=== PATIENT | female | born 1995 | race Caucasian/White ===

== ENCOUNTER 2018-12-21 16:28 | Emergency (ER) | payer OTHER ==
[~2018-12-21] VITALS: Ht 170.1 cm; Wt 107.5 kg
[~2018-12-21 16:28] MED LIST: AMOXICILLIN500 M2 PO; PEPCID20 MG PO; ZYRTEC10 MG PO
[2018-12-21] MEDS ORDERED: PREDNISONE20 M1 PO (17:05)
== END 2018-12-21 17:16 | disposition home or self-care (01) ==
LOC: ED 16:28
DX: L23.7 Allergic contact dermatitis due to plants, except food (principal)

== ENCOUNTER 2020-08-15 10:56 | Emergency (ER) | payer OTHER ==
[~2020-08-15] VITALS: Ht 167.6 cm; Wt 97.1 kg
[~2020-08-15 10:56] MED LIST changes: +PREDNISONE20 M1 PO
[2020-08-15] MEDS ORDERED: CYCLOBENZAPRINE5 M3 PO (11:49)
[2020-08-15] MEDS ORDERED: Motrin,Rufen800 MG PO (11:49)
== END 2020-08-15 11:56 | disposition home or self-care (01) ==
LOC: ED 10:56
DX: M54.5 Low back pain (principal); Z79.899 Other long term (current) drug therapy

== ENCOUNTER 2022-09-07 08:21 | Emergency (ER) | payer OTHER ==
[~2022-09-07] VITALS: Ht 167.6 cm; Wt 97.1 kg
[~2022-09-07 08:21] MED LIST changes: +CYCLOBENZAPRINE5 M3 PO; +Motrin,Rufen800 MG PO
[2022-09-07 09:31] LABS: BASO % 0.4 % (0.0-1.0); EOS # 0.1 10*3/uL (0.0-0.4); EOS % 1.3 % (1.0-4.0); HEMATOCRIT 40.9 % (37.0-47.0); LYMPH # 3.4 10*3/uL (1.3-4.4); LYMPH % 37.9 % (27.0-41.0); MEAN CELL VOLUME 84.7 fl (81.0-99.0); MEAN CORPUSCULAR HGB 28.8 pg (27.0-31.0); MEAN PLATELET VOLUME 9.2 fl (9.6-12.3); MONO # 0.5 10*3/uL (0.1-1.0); MONO % 5.8 % (3.0-9.0); NEUT # 4.9 10*3/uL (2.3-7.9); PLATELET COUNT AUTOMATED 423 10*3/uL (130-400); RED BLOOD COUNT 4.83 10*6/uL (4.10-5.10); RED CELL DISTRI WIDTH 12.8 % (0-14.5); WHITE BLOOD COUNT 9.1 10*3/uL (4.8-10.8)
[2022-09-07 10:36] LABS: ALKALINE PHOSPHATASE 53 U/L (46-116); BUN 8 mg/dl (9-23); CHLORIDE 103 mmol/L (98-107); LIPASE 29 U/L (12-53); SGPT/ALT 14 U/L (10-49); TOTAL PROTEIN 7.9 gm/dL (6.0-8.0)
[2022-09-07 10:58] LABS: BETA-HCG, QUANT < 0.0 mIU/mL (0-10)
[2022-09-07] MEDS ORDERED: ZITHROMAX250 MG PO (11:16)
[2022-09-07] MEDS ORDERED: PREDNISONE50 MG PO (11:16)
== END 2022-09-07 11:26 | disposition home or self-care (01) ==
LOC: ED 08:21
PROVIDERS: Emergency Medicine
DX: J20.9 Acute bronchitis, unspecified (principal); Z88.1 Allergy status to other antibiotic agents

== ENCOUNTER 2023-03-04 15:57 | Emergency (ER) | payer OTHER ==
[~2023-03-04] VITALS: Ht 167.6 cm; Wt 103.4 kg
[~2023-03-04 15:57] MED LIST changes: +PREDNISONE50 MG PO; +ZITHROMAX250 MG PO
[2023-03-04] MEDS ORDERED: PENICILLIN-VK500 MG PO (16:24)
[2023-03-04] MEDS ORDERED: Motrin,Rufen800 MG PO (16:24)
== END 2023-03-04 16:41 | disposition home or self-care (01) ==
LOC: ED 15:57
DX: K04.7 Periapical abscess without sinus (principal); Z88.1 Allergy status to other antibiotic agents

== ENCOUNTER 2023-03-29 11:09 | Emergency (ER) | payer OTHER ==
[~2023-03-29] VITALS: Ht 167.6 cm; Wt 100.7 kg
[~2023-03-29 11:09] MED LIST changes: +PENICILLIN-VK500 MG PO
== END 2023-03-29 15:33 | disposition left against medical advice (07) ==
LOC: ED 11:09
DX: K08.89 Other specified disorders of teeth and supporting structures (principal); Z53.21 Procedure and treatment not carried out due to patient leaving prior to being seen by health care provider

== ENCOUNTER → 2024-10-09 | Outpatient (CLI) | payer OTHER | END | disposition home or self-care (01) | LOC: RAD 11:09 | PROVIDERS: ATTEND Nurse Practitioner Family | DX: M48.061 Spinal stenosis, lumbar region without neurogenic claudication (principal); M51.369 Other intervertebral disc degeneration, lumbar region without mention of lumbar back pain or lower extremity pain; M54.59 Other low back pain ==

== ENCOUNTER 2025-02-18 09:28 | Emergency (ER) | payer OTHER ==
[~2025-02-18] VITALS: Ht 167.6 cm; Wt 106.6 kg
[2025-02-18] MEDS ORDERED: CEFDINIR300 MG PO (10:02)
== END 2025-02-18 11:02 | disposition home or self-care (01) ==
LOC: ED 09:28
DX: H66.91 Otitis media, unspecified, right ear (principal); Z88.1 Allergy status to other antibiotic agents